=== PATIENT | female | born 1970 | race Two or more races ===

== ENCOUNTER 2017-11-13 13:59 | Emergency (ER) | payer OTHER ==
[~2017-11-13] VITALS: Ht 165.1 cm; Wt 93.0 kg
[~2017-11-13 13:59] MED LIST: AMBIEN CR12.5 MG/BL; CIPRO500 MG PO; CYMBALTA60 MG; DOLOGEN CAPLET1 EACH PO; ESTR0.624; GILENYA0.5 MG; MEDROL4 MG PO; MOTRIN800 MG PO; SYNTHROID75 MCG
[2017-11-13] MEDS ORDERED: LOSARTAN POTASS25 MG (14:31)
[2017-11-13] MEDS ORDERED: PROTONIX40 MG (14:31)
== END 2017-11-13 18:20 | disposition home or self-care (01) ==
LOC: ER 13:59
DX: M54.89 Other dorsalgia (principal); M25.572 Pain in left ankle and joints of left foot

== ENCOUNTER 2018-01-26 11:54 | Emergency (ER) | payer OTHER ==
[~2018-01-26] VITALS: Ht 152.4 cm; Wt 90.7 kg
[~2018-01-26 11:54] MED LIST changes: +LOSARTAN POTASS25 MG; +PROTONIX40 MG
== END 2018-01-26 17:49 | disposition home or self-care (01) ==
LOC: ER 11:54
DX: N39.0 Urinary tract infection, site not specified (principal)

== ENCOUNTER 2018-07-03 13:46 | Emergency (ER) | payer OTHER ==
[~2018-07-03] VITALS: Ht 165.1 cm; Wt 93.9 kg
[2018-07-03] MEDS ORDERED: ARMOUR THYROID90 MG PO (14:08)
== END 2018-07-03 16:24 | disposition home or self-care (01) ==
LOC: ER 13:46
DX: M54.31 Sciatica, right side (principal); G35 Multiple sclerosis